=== PATIENT | female | born 1955 | race Caucasian/White ===

== ENCOUNTER 2017-05-25 18:25 | Emergency (ER) | payer OTHER ==
[2017-05-25 18:48] VITALS: RESP 16; TEMP 97.4
[2017-05-25] MEDS ORDERED: APAP/OXYCODONE 325/5 TAB PO ONE (19:54)
[2017-05-25] MEDS ORDERED: APAP/OXYCODONE 325/5 TAB ONE (19:56)
[2017-05-25 20:40] VITALS: O2SAT 95
[2017-05-25 20:41] VITALS: BP 132/62; PULSE 89
== END 2017-05-25 20:30 | disposition home or self-care (01) ==
LOC: ED 18:25
DX: S80.01XA Contusion of right knee, initial encounter (principal); Z96.651 Presence of right artificial knee joint; W18.30XA Fall on same level, unspecified, initial encounter; M25.461 Effusion, right knee
CPT/HCPCS: 73562; 99284

== ENCOUNTER 2018-03-29 18:12 | Emergency (ER) | payer OTHER ==
[2018-03-29] MEDS ORDERED: TDAP VACCINE 0.5 ML SUS IM ONE ×2 (18:29→18:39)
[2018-03-29 19:08] VITALS: BP 151/78; PULSE 87; RESP 20; TEMP 98; O2SAT 97
== END 2018-03-29 19:04 | disposition home or self-care (01) ==
LOC: ED 18:12
DX: S91.312A Laceration without foreign body, left foot, initial encounter (principal); W25.XXXA Contact with sharp glass, initial encounter; T14.8XXA Other injury of unspecified body region, initial encounter
CPT/HCPCS: 12001; 90471; 90715; 99284; G0168

== ENCOUNTER 2019-01-05 18:22 | Emergency (ER) | payer MEDICAID, OTHER ==
[2019-01-05 18:59] VITALS: BP 145/77; PULSE 102; RESP 18; TEMP 97.8; O2SAT 95
[2019-01-05] MEDS ORDERED: CYCLOBENZAPRINE 10 MG TAB ONE (19:00)
[2019-01-05] MEDS ORDERED: KETOROLAC TROMETHAMINE 30 MG/ML SOL ONE (19:00)
[2019-01-05] MEDS: CYCLOBENZAPRINE HYDROCHLORID 5 MG TAB PO PRN (19:01)
[2019-01-05] MEDS: KETOROLAC TROMETHAMINE 30 MG/ML SOL IM ONE (19:01)
[2019-01-05] MEDS ORDERED: APAP/HYDROCODONE 1 EACH TABLET ONE (19:40)
[2019-01-05] MEDS: APAP/HYDROCODONE 1 EACH TABLET PO ONE (19:40)
== END 2019-01-05 19:42 | disposition home or self-care (01) | DRG 552 ==
LOC: ED 18:22
DX: M54.5 Low back pain (principal)
CPT/HCPCS: 96372; 99282; J1885; A9270-GY

== ENCOUNTER 2019-01-30 18:12 | Emergency (ER) | payer OTHER ==
[2019-01-30 18:26] VITALS: BP 159/95; PULSE 97; RESP 16; TEMP 98.3; O2SAT 99
[2019-01-30] MEDS: SODIUM CHLORIDE 0.9% 1000ML 1,000 ML IV ONE ×2 (18:45→19:30)
[2019-01-30 19:00] LABS: BASOPHILS % (AUTO) 1 % (0-3); EOSINOPHILS % (AUTO) 1 % (0-9); HEMATOCRIT 40 % (35-47); LYMPHOCYTES % (AUTO) 23.9 % (10-50); MEAN CORPUSCULAR HEMOGLOBIN 30.1 pg (27.0-32.0); MEAN CORPUSCULAR HGB CONC 32.7 gm/dl (32.0-36.0); MEAN CORPUSCULAR VOLUME 92 fL (81-99); MONOCYTES % (AUTO) 4.9 % (0-12); NEUTROPHILS % (AUTO) 69.9 % (37-80)
[2019-01-30 19:20] LABS: BLOOD UREA NITROGEN 29 mg/dl (7-18); CALCIUM 9.1 mg/dl (8.5-10.1); CARBON DIOXIDE 26.5 mEq/L (21-32); CHLORIDE 107 mMol/L (98-107); CREATININE 1.73 mg/dl (0.60-1.00); GLUCOSE 114 mg/dl (74-106); POTASSIUM 4.2 mMol/L (3.5-5.1); SODIUM 143 mMol/L (136-145); TROP I < 0.017 ng/ml (0.000-0.056)
== END 2019-01-30 21:04 | disposition home or self-care (01) | DRG 641 ==
LOC: ED 18:12
DX: E86.0 Dehydration (principal)
CPT/HCPCS: 70450; 72125; 73060; 80048; 84484; 85025; 93005; 96365; 99283; 99284

== ENCOUNTER 2019-02-20 18:54 | Emergency (ER) | payer OTHER ==
[2019-02-20 19:18] VITALS: TEMP 97.6
[2019-02-20] MEDS ORDERED: KETOROLAC TROMETHAMINE 30 MG/ML SOL IM ONE (19:52)
[2019-02-20] MEDS ORDERED: KETOROLAC TROMETHAMINE 30 MG/ML SOL ONE (19:54)
[2019-02-20 20:03] VITALS: BP 175/106; PULSE 91; RESP 20; O2SAT 96
== END 2019-02-20 20:11 | disposition home or self-care (01) | DRG 552 ==
LOC: ED 18:54
DX: M54.5 Low back pain (principal); G89.29 Other chronic pain
CPT/HCPCS: 96372; 99282; J1885

== ENCOUNTER 2019-03-17 15:06 | Emergency (ER) | payer OTHER ==
[2019-03-17] MEDS ORDERED: SODIUM CHLORIDE 0.9% FLUSH 10 ML SOL IV PRN (15:13)
[2019-03-17] MEDS ORDERED: SODIUM CHLORIDE 0.9% 1000ML 1,000 ML IV ONE ×2 (15:14→16:40)
[2019-03-17 15:25] LABS: BASOPHILS % (AUTO) 1 % (0-3); EOSINOPHILS % (AUTO) 2 % (0-9); HEMATOCRIT 33 % (35-47); HEMOGLOBIN 10.9 gm/dl (12.0-15.5); LYMPHOCYTES % (AUTO) 34.8 % (10-50); MEAN CORPUSCULAR HEMOGLOBIN 30.9 pg (27.0-32.0); MEAN CORPUSCULAR HGB CONC 33.6 gm/dl (32.0-36.0); MEAN CORPUSCULAR VOLUME 92 fL (81-99); MONOCYTES % (AUTO) 7.5 % (0-12); NEUTROPHILS % (AUTO) 55.3 % (37-80)
[2019-03-17 15:42] LABS: BLOOD UREA NITROGEN 51 mg/dl (7-18); CHLORIDE 106 mMol/L (98-107); CREATINE KINASE 44 U/L (26-192); CREATININE 2.84 mg/dl (0.60-1.00); GLUCOSE 123 mg/dl (74-106); POTASSIUM 4.8 mMol/L (3.5-5.1); SODIUM 137 mMol/L (136-145); TROP I < 0.017 ng/ml (0.000-0.056)
[2019-03-17 17:10] VITALS: TEMP 97.8
[2019-03-17 18:02] VITALS: O2SAT 94
[2019-03-17 18:11] VITALS: BP 132/72; PULSE 68; RESP 18
== END 2019-03-17 18:09 | disposition home or self-care (01) | DRG 316 ==
LOC: ED 15:06
DX: I95.9 Hypotension, unspecified (principal); R55 Syncope and collapse; R42 Dizziness and giddiness
CPT/HCPCS: 36415; 71045; 80048; 82550; 84484; 85025; 93005; 96365; 96366; 99284; 99285

== ENCOUNTER 2019-03-31 13:35 | Emergency (ER) | payer OTHER ==
[2019-03-31] MEDS ORDERED: SODIUM CHLORIDE 0.9% 1000ML 1,000 ML IV ONE (14:04)
[2019-03-31 14:17] LABS: BASOPHILS % (AUTO) 0 % (0-3); EOSINOPHILS % (AUTO) 1 % (0-9); HEMATOCRIT 33 % (35-47); HEMOGLOBIN 10.4 gm/dl (12.0-15.5); MEAN CORPUSCULAR HEMOGLOBIN 30.3 pg (27.0-32.0); MEAN CORPUSCULAR HGB CONC 31.5 gm/dl (32.0-36.0); MEAN CORPUSCULAR VOLUME 96 fL (81-99); MONOCYTES % (AUTO) 7.3 % (0-12); NEUTROPHILS % (AUTO) 65.3 % (37-80)
[2019-03-31 14:22] VITALS: RESP 16; TEMP 97
[2019-03-31 14:36] LABS: ALKALINE PHOSPHATASE 113 IU/L (46-116); ALT 25 IU/L (14-63); AST 12 IU/L (15-37); BILIRUBIN,TOTAL 0.1 mg/dl (0.2-1.0); BLOOD UREA NITROGEN 24 mg/dl (7-18); CALCIUM 8.1 mg/dl (8.5-10.1); CARBON DIOXIDE 25.6 mEq/L (21-32); CHLORIDE 108 mMol/L (98-107); GLUCOSE 104 mg/dl (74-106); TOTAL PROTEIN 6.1 gm/dl (6.4-8.2); TROP I < 0.017 ng/ml (0.000-0.056)
[2019-03-31] MEDS ORDERED: SODIUM CHLORIDE 0.9% FLUSH 10 ML SOL IV PRN (14:40)
[2019-03-31] MEDS ORDERED: ACETAMINOPHEN 500 MG 500 MG TAB PO PRN (14:42)
[2019-03-31] MEDS ORDERED: KETOROLAC TROMETHAMINE 30 MG/ML SOL ONE (14:42)
[2019-03-31] MEDS ORDERED: KETOROLAC TROMETHAMINE 30 MG/ML SOL IV ONE (14:42)
[2019-03-31] MEDS ORDERED: ACETAMINOPHEN 500 MG 500 MG TAB ONE (14:46)
[2019-03-31 16:24] LABS: APPEARANCE,URINE Clear; BILIRUBIN,URINE NEGATIVE (NEGATIVE); COLOR,URINE Yellow; GLUCOSE, URINE (UA) NEGATIVE (NEGATIVE); KETONES,URINE NEGATIVE (NEGATIVE); LEUKOCYTE ESTERASE ,URINE 1+ (NEGATIVE); NITRATE,URINE NEGATIVE (NEGATIVE); OCCULT BLOOD,URINE NEGATIVE (NEG-TRACE); PH,URINE 5.5; UROBILINOGEN,URINE 0.2 (0.2-1.0 EU)
[2019-03-31 16:38] LABS: BACTERIA 1+ (< 1+); CRYSTALS NEGATIVE (0-3 AVE/HPF)
[2019-03-31 16:53] VITALS: O2SAT 100
[2019-03-31 17:14] VITALS: BP 131/87; PULSE 84
== END 2019-03-31 17:10 | disposition home or self-care (01) | DRG 312 ==
LOC: ED 13:35
DX: R55 Syncope and collapse (principal); N39.0 Urinary tract infection, site not specified; I50.9 Heart failure, unspecified
CPT/HCPCS: 36415; 71045; 80053; 81001; 83880; 84484; 85025; 87088; 93005; 96365; 96366; 96374; 99284; 99285; J1885